=== PATIENT | female | born 1955 | race Caucasian/White ===

== ENCOUNTER 2021-05-25 08:58 | Emergency (ER) | payer OTHER, MEDICARE ==
[~2021-05-25] VITALS: Ht 167.6 cm; Wt 68.0 kg
[2021-05-25 08:58] VITALS: BP_SYST 144
[2021-05-25] MEDS ORDERED: DIPHENHYDRAMINE HCL 50 MG CAPSULE PO ONE (09:45)
[2021-05-25 10:30] VITALS: BP_SYST 147
== END 2021-05-25 10:30 | disposition home or self-care (01) ==
LOC: SED 08:58
DX: T23.402A Corrosion of unspecified degree of left hand, unspecified site, initial encounter (principal); Y93.89 Activity, other specified; Y92.89 Other specified places as the place of occurrence of the external cause; Y99.8 Other external cause status
CPT/HCPCS: 99282; Q0163